=== PATIENT | female | born 1990 | race Caucasian/White ===

== ENCOUNTER 2023-05-25 22:26 | Emergency (ER) | payer OTHER, SELFPAY ==
--- NOTE | ~2023-05-25 | CT_ITS ---
CT of the Abdomen and Pelvis: Indication: Abdominal pain Technique: 2.5 mm axial scans were obtained through the abdomen and pelvis following intravenous adm inistration of 100 cc of Omnipaque 350. Dose reduction technique was used on this scan by utilizing a utomated exposure control and iterative reconstruction technique. The dose-length product (DLP) was 8 88.82 mGy-cm. Findings: Scans through the lung bases are unremarkable. The liver, spleen, pancreas, gallbladder, adrenals and left kidney are within normal limits. There is an area of decreased right renal cortical enhancement, consistent with right pyelonephritis. No evid ence of aortic aneurysm. No lymphadenopathy. No bowel obstruction or bowel wall thickening. There is no evidence to suggest acute appendicitis. Images through the pelvis were performed. There is a 5.3 cm probable right ovarian cyst. No other adn exal mass seen. Urinary bladder is minimally distended with questionable wall thickening. No ascites. Impression: Right pyelonephritis. No extra renal abscess evident. Possible mild urinary bladder wall thickening. Correlate for associated cystitis. 5.3 cm right ovarian cyst. Consider ultrasound if there is concern for torsion. Reviewed, dictated and finalized at location . Impression: Right pyelonephritis. No extra renal abscess evident. Possible mild urinary bladder wall thickening. Correlate for associated cystiti s. 5.3 cm right ovarian cyst. Consider ultrasound if there is concern for torsion.
[2023-05-25 22:33] VITALS: BP 104/88; PULSE 98; RESP 15; TEMP 36.4; O2SAT 100
[2023-05-25 22:49] LABS: Basophils Percent Auto 0.2 % (0.2-1.2); Eosinophils Percent Auto 0.2 % (0-4.4); Hematocrit 37.5 % (37.0-47.0); Hemoglobin 12.8 g/dL (12.0-15.0); Immature Granulocyte Absolute 0.05 K/mm3 (0.00-0.031); Immature Granulocyte Percent A 0.4 % (0-0.5); Lymphocytes Absolute Auto 1.31 K/mm3 (0.9-3.2); Lymphocytes Percent Auto 10.6 % (18.3-44.2); Mean Corpuscular HGB Conc 34.1 g/dl (32-36); Mean Corpuscular Hemoglobin 30.7 pg (26-34); Mean Corpuscular Volume 89.9 fl (80-100); Mean Platelet Volume 9.6 fl (7.4-10.4); Monocytes Absolute Auto 1.7 K/mm3 (0.1-0.6); Monocytes Percent Auto 13.7 % (2.6-8.5); Neutrophils Absolute Auto 9.3 K/mm3 (1.3-6.7); Neutrophils Percent Auto 74.9 % (45.5-73.1); Platelet Count Result 232 k/mm3 (150-375); Red Blood Count 4.17 M/mm3 (4.2-5.4); Red Cell Distribution Width 12.8 % (11.5-14.5); White Blood Count 12.4 K/mm3 (4.5-10.0)
[2023-05-25 23:05] LABS: Alanine Aminotransferase 22 U/L (6-35); Albumin Level 3.8 g/dL (3.5-5.1); Alkaline Phosphatase 62 U/L (38-126); Anion Gap 5 mmol/L (8-16); Aspartate Amino Transferase 20 U/L (14-36); Bilirubin,Total 1.4 mg/dL (0.2-1.3); Blood Urea Nitrogen 9 mg/dL (7-17); Calcium 8.3 mg/dL (8.4-10.2); Carbon Dioxide 26 mmol/L (22-30); Chloride 102 mmol/L (98-107); Estimated CRCL calculation 113 ml/min; Estimated Glomerular Filt Rate > 60; Glucose 121 mg/dL (65-110); Lipase 24 U/L (23-300); Potassium 3.8 mmol/L (3.4-5.0); Sodium 133 mmol/L (137-145)
[2023-05-25 23:20] LABS: Bacteria Urine Rare /hpf; Non Pathogenic Casts 0-2; Squamous Epithelial Cell Urine Many /hpf (Few); WBC Urine 51-100 /hpf
[2023-05-25 23:24] LABS: Influenza A QL RT-PCR Negative (Negative); Influenza B QL RT-PCR Negative (Negative); RSV RNA, RT-PCR Negative (Negative); SARS-CoV-2 RNA PCR Negative (Negative)
[2023-05-25 23:25] LABS: Appearance Urine Cloudy (Clear); Bilirubin Urine 1+ (Negative); Blood Urine 1+ (Negative); Glucose Urine UA Negative (Negative); Ketones Urine Trace mg/dL (Negative); Leukocyte Esterase Ur 2+ LEU/UL (Negative); Nitrate Urine Positive (Negative); Protein Urine 2+ mg/dL (Negative); Specific Grav Ur 1.021 (1.001-1.035)
[2023-05-25 23:26] LABS: Color Urine Dark Amber (Yellow)
[2023-05-25 23:38] LABS: Add Urine Microscopic? YES
--- NOTE | 2023-05-26 02:51 | ED.ABDPAIN ---
HPI - Abdominal Pain General Chief Complaint: Abdominal Pain <NOAH Hernández Last Filed: 05/26/23 04:48> Stated Complaint: vomiting, abd pain, body aches, chills, headache <NOAH Hernández Last Filed: 05/26/23 04:48> Time Seen by Provider: 05/26/23 01:55 <NOAH Hernández Last Filed: 05/26/23 04:48> Source: patient and old records reviewed <NOAH Hernández Filed: 05/26/23 04:48> Mode of arrival: ambulatory <NOAH Hernández Filed: 05/26/23 04:48> Limitations: no limitations <NOAH Hernández Filed: 05/26/23 04:48> History of Present Illness HPI narrative: Patient is a 32-year-old female who presents to the ED with report of right-sided abdominal pain. Patient reports having urinary symptoms including dysuria and urinary frequency/urgency for the last 1 week. She developed pain in her right upper abdomen/right low back on Thursday. She also reports having chills, diaphoresis, fevers up to 103 ?F over the weekend. She was seen in urgent care on Thursday and diagnosed with UTI, prescribed Macrobid. Patient states she had a fever of 101 degrees at the urgent care. She was told if she developed vomiting to come to the ED. Patient began vomiting on Thursday and has been unable to keep down any food or drink. Reporting persistent pain in her right low back, right lower abdomen, right upper abdomen. Denying diarrhea or constipation. Denies cough or cold symptoms. <NOAH Hernández Last Filed: 05/26/23 04:48> Related Data Allergies/Adverse Reactions: Allergies Allergy/AdvReac Type Severity Reaction Status Date / Time No Known Allergies Allergy Verified 05/26/23 01:48 <NOAH Hernández Last Filed: 05/26/23 04:48> Review of Systems Review of Systems: CONSTITUTIONAL: Denies fever, chills, or sweats. ENT: Denies rhinorrhea, congestion, sore throat. CARDIOVASCULAR: Denies chest pain. RESPIRATORY: Denies cough. GASTROINTESTINAL: See HPI. GENITOURINARY: See HPI. SKIN: Denies rash or itching. MUSCULOSKELETAL: See HPI. NEUROLOGIC: Denies headache, numbness, or weakness. <NOAH Hernández Last Filed: 05/26/23 04:48> All systems reviewed & are unremarkable except as noted in HPI and below <NOAH Hernández Last Filed: 05/26/23 04:48> Exam Narrative: GENERAL: Mildly ill appearing, obese with BMI of 36.7, non-toxic, in no acute distress. HEAD: Normocephalic, atraumatic. NECK: Supple. No adenopathy, no masses. RESPIRATORY: Airway patent, respirations nonlabored. Clear to auscultation bilaterally, no rales, rhonchi, wheezing. CARDIOVASCULAR: Regular rate and rhythm without murmurs, rubs, or gallops. Peripheral pulses 2+ and equal bilaterally. ABDOMINAL: Soft, tenderness throughout epigastric region, right upper quadrant, right mid and lower abdomen. Nondistended, no hepatosplenomegaly. Normoactive BS. Positive CVA tenderness to percussion on right. MUSCULOSKELETAL: Moves all extremities. Strength/ROM intact without gross deformities. SKIN: Warm, dry, normal color. No rashes. NEURO: A&O X3. Speech clear. Cranial nerves II-XII grossly intact. Steady gait. No ataxic movements. PSYCHIATRIC: Tearful. Normal interaction. <NOAH Hernández Last Filed: 05/26/23 04:48> Course Vital Signs Vital signs: Vital Signs Temperature 36.4 C 05/25/23 22:33 Pulse Rate 98 05/25/23 22:33 Respiratory Rate 15 05/25/23 22:33 Blood Pressure 104/88 05/25/23 22:33 Pulse Oximetry 100 05/25/23 22:33 Oxygen Delivery Room Air 05/25/23 22:33 Temperature 36.4 C 05/25/23 22:33 Pulse Rate 77 05/26/23 06:05 Respiratory Rate 15 05/26/23 06:05 Blood Pressure 108/64 05/26/23 06:05 Pulse Oximetry 100 05/26/23 06:05 Oxygen Delivery Room Air 05/25/23 22:33 <Vicky Yarbrough PA-C - Last Filed: 05/26/23 04:48> V
[2023-05-26] MEDS: ONDANSETRON INJ 4 MG/2 ML VIAL IV PUSH ×2 (03:03→07:15)
[2023-05-26] MEDS: MORPHINE SULFATE (*CRX) 4 MG/ML INJ IV PUSH ×2 (03:03→07:15)
[2023-05-26] MEDS: SODIUM CHLORIDE 0.9% IV 1,000 ML 999 ML IV CONT ×2 (03:03→04:07)
[2023-05-26 03:34] LABS: Lactic Acid Reflex 0.6 mmol/L (0.7-2.0)
[2023-05-26 03:42] LABS: Pregnancy On Board Control Positive; Urine Pregnancy Test Negative
[2023-05-26 06:05] VITALS: BP 108/64; PULSE 77; RESP 15; O2SAT 100
[2023-05-26 07:49] VITALS: BP 108/64; PULSE 66; RESP 18; O2SAT 100
== END 2023-05-26 07:50 | disposition home or self-care (01) ==
PROVIDERS: Physician Assistant; Emergency Provider Emergency Medicine
DX: N10 Acute pyelonephritis (principal); Z20.822 Contact with and (suspected) exposure to COVID-19
CPT/HCPCS: 36415; 74177; 80053; 81001; 81025; 83605; 83690; 85025; 87086; 87088; 87637; 96361; 96365; 96375; 96376; 99284; J0696; J2270; J2405; J7030; Q9967